=== PATIENT | female | born 1985 ===

== ENCOUNTER 2017-01-01 12:51 | Emergency (ER) | payer MEDICAID ==
[2017-01-01 13:45] VITALS: BMI 26.4
[2017-01-01 21:17] VITALS: BP 99/59; PULSE 83
--- NOTE | 2017-01-02 01:16 | OBHP ---
Datetime: 01/01/2017 13:33 IP Adm Impression: , intrauterine IP Chief Complaint Other: needs Rhogam - unable to obtain as outpatient IP Adm Impression Other: Rh neg IP Admit Plan: Observation/Evaluation Admit Comment, IP Provider: 31yo IUP at 28w sent for Rhogam injectoin. Blood type O neg Ab neg August 07 +FM; no CTX: no VB; no SROM care: CP Dr Carlene salas Chart rev'd; had thir tri done today; no blood type; given TDAP in office today PMSH: denies NKA POBH: x 2 (one ) PGYNH: denies STD PSoH: denies smoking ETOH drugs A: IUP at 28w Rh neg PLAN check blood and given Rhogam. patients questions answered. Follow up in 2w as scheduled FHR - Baseline A Provider: 135 Membranes, Provider: Intact Comments, ACOG Physical Exam: ROS: General: no weakness; no fatigue HEENT: no BREWER; no visual dist CV: no palpitations; no no CP GI: no N/V no diarhea : no F/U/D MS: No joint pain IP Hx Assessment: The History has been Reviewed and is Current EGA AdmitDate IP: 28.1 IP Chief Complaint: Other NICHD Variability Prov Fetus A: Moderate 6-25bpm NICHD Accel Fetus A IP Provider: 10X10 FHR Category Provider Fetus A: Category I
--- NOTE | 2017-01-02 01:19 | OBHP ---
Datetime: 01/01/2017 13:33 Admit Comment, IP Provider: 31yo IUP at 28w sent for Rhogam injectoin. Blood type O neg Ab neg August 07 +FM; no CTX: no VB; no SROM care: CP Dr Carlene salas Chart rev'd; had thir tri done today; no blood type; given TDAP in office today PMSH: denies NKA POBH: x 2 (one ) PGYNH: denies STD PSoH: denies smoking ETOH drugs A: IUP at 28w Rh neg PLAN check blood and given Rhogam. patients questions answered. Follow up in 2w as scheduled ADD allergy: vanco
--- NOTE | 2017-01-02 01:19 | OBDCSUM ---
Datetime: 01/01/2017 16:36 Discharged to, Provider: Home Follow up at, Provider: DR. Verdin Disch Instr Activity: Normal activity Disch Instr Diet: Regular Discharge Time: 01/01/2017 16:30 Follow up in weeks, Provider: 1 week Disch Referrals: None
== END 2017-01-01 16:30 | disposition home or self-care (01) ==
LOC: H.EROB2 12:51
DX: O36.0931 Maternal care for other rhesus isoimmunization, third trimester, fetus 1 (principal); Z3A.28 28 weeks gestation of pregnancy
CPT/HCPCS: 86850; 86900; 99281; J2792

== ENCOUNTER 2017-03-16 00:42 | Inpatient (IN) | payer MEDICAID ==
[2017-03-16 01:53] VITALS: BMI 23.2
[2017-03-16] MEDS ORDERED: Nalbuphine 20 mg/ml Inj (1 ml) IVP PRN (02:19)
[2017-03-16] MEDS ORDERED: Fentanyl/Bupivacaine HCl 250 ML EPI ONE (02:59)
[2017-03-16] MEDS ORDERED: Lactated Ringer's 1,000 ML IV SCH (03:00)
[2017-03-16] MEDS: Lactated Ringer's 1,000 ML IV SCH ×2 (03:00→03:35)
[2017-03-16] MEDS ORDERED: Oxytocin 30 UNITS in Sodium Chloride 0.9% 500 ML IV SCH (03:00)
[2017-03-16 03:16] LABS: BASO % 0.4 % (0.0-2.0); EOS # 0.1 K/uL (0.0-0.7); EOS % 0.7 % (0.0-4.0); HEMATOCRIT 37.8 % (34.0-47.0); LYMPH # 1.4 K/uL (1.0-4.3); LYMPH % 14.7 % (20.0-40.0); MEAN CELL VOLUME 76.8 fl (81.0-99.0); MEAN CORPUSCULAR HEMOGLOBIN 25.9 pg (27.0-31.0); MEAN CORPUSCULAR HGB CONC 33.7 g/dL (33.0-37.0); MEAN PLATELET VOLUME 10.5 fl (7.2-11.7); MONO # 0.9 K/uL (0.0-0.8); MONO % 9.7 % (0.0-10.0); NEUT # 6.9 K/uL (1.8-7.0); NEUT % 74.5 % (50.0-75.0); NRBC % 0.1 % (0.0-0.0); RED CELL DISTRIBUTION WIDTH 14.2 % (11.5-14.5); WHITE BLOOD COUNT 9.3 K/uL (4.8-10.8)
[2017-03-16] MEDS ORDERED: Lidocaine 1% Inj (20ml) ONE (04:36)
[2017-03-16 05:46] VITALS: O2SAT 100
--- NOTE | 2017-03-16 09:37 | OBDS ---
DELIVERY PERSONNEL Delivery Doctor: Simon Banks MD Table Worker Packager: One[place]/Mark-CastroRN MATERNAL INFORMATION Delivery Anesthesia: Epidural Medications in Delivery: Pitocin Placenta Cultured: No Maternal Complications: None Provider Comments: of live female infant over intact perineum, 6lbs 9oz, 9/9, [place] presentation followed by shoulders and rest of , mouth and nose suctioned, cord clamped and cut, placenta de livered spontaneously, cord blood obtained, QRN=[id number], no lacerations, patient tolerated procedure LABOR SUMMARY EDC: 03/25/2017 00:00 No. Babies in Womb: 1 Attempted: No Labor Anesthesia: Epidural LABOR INFORMATION Reason for Induction: Not Applicable Onset of Labor: 03/16/2017 03:00 Complete Dilatation: 03/16/2017 07:30 Oxytocin: N/A Group B Beta Strep: Negative Antibiotics # of Doses: n/a Antibiotics Time of Last Dose: n/a Steroids Given: None Reason Steroids Not Administered: Not Applicable Other Reason Not Administered: n/a MEMBRANES Membranes Rupture Method: Artificial Rupture of Membranes: 03/16/2017 07:30 Length of Rupture (hrs): 0.67 Amniotic Fluid Color: Clear Amniotic Fluid Amount: Moderate Amniotic Fluid Odor: Normal STAGES OF LABOR Stage 1 hrs: 4 Stage 1 min: 30 Stage 2 hrs: 0 Stage 2 min: 40 Stage 3 hrs: 0 Stage 3 min: 2 Total Time in Labor hrs: 5 Total Time in Labor min: 12 VAGINAL DELIVERY Episiotomy: None Laceration Extension: N/A Laceration Type: None Laceration Repair: Not Applicable Initial Vag Sponge Count: Laps=5+1 Final Vag Sponge Count: Laps=5+1 Initial Vag Sharps Count: 0 Final Vag Sharps Count: 0 Sponge Count Correct: Yes Sharps Count Correct: N/A Count Comment: laps=5+1 correct BABY A INFORMATION Delivery Date/Time: 03/16/2017 08:10 Method of Delivery: Vaginal Born in Route : No : N/A Forceps: N/A Vacuum Extraction: N/A Shoulder Dystocia : No SHOULDER DYSTOCIA BABY A Infant Delivery Date/Time: 03/16/2017 08:10 PRESENTATION/POSITION BABY A Presentation: Cephalic Cephalic Presentation: Vertex Breech Presentation: N/A PLACENTA INFORMATION BABY A Placenta Delivery Time : 03/16/2017 08:12 Placenta Method of Delivery: Spontaneous Placenta Status: Delivered SCORES BABY A Heart Rate 1 min: >100 bpm Resp Effort 1 min: Good Cry Reflex Irritability 1 min: Cough or Sneeze or Pulls Away Muscle Tone 1 min: Active Motion Color 1 min: Body [place], Extremities Blue Resuscitation Effort 1 min: Tactile Stimulation SCORE 1 MIN: 9 Heart Rate 5 min: >100 bpm Resp Effort 5 min: Good Cry Reflex Irritability 5 min: Cough or Sneeze or Pulls Away Muscle Tone 5 min: Active Motion Color 5 min: Body [place], Extremities Blue Resuscitation Effort 5 min: N/A SCORE 5 MIN: 9 INFORMATION BABY A Gestational Age at Delivery: 38.5 Gestational Status: Term Infant Outcome : Liveborn Infant Condition : Stable Sex: Male IDENTIFICATION/MEDS BABY A ID Band Number: [id number] ID Band Location: Left Leg; Left Arm Vitamin K Given : Not Given Erythromycin Given: Not Given WEIGHT/LENGTH BABY A Infant Birthweight (gms): 2965 Infant Weight (lb): 6 Infant Weight (oz): 9 CORD INFORMATION BABY A No. Cord Vessels: 3 Nuchal Cord : N/A Nuchal Cord Other: n/a True Knot: n/a Infant Cord pH Baby Arterial: n/a Cord pH Baby Venous: n/a Cord Blood Taken: Yes Banking/Donate Info: n/a Suction: Mouth; Nose ASSESSMENT BABY A Complications: None Physical Findings at Delivery: Within Normal Limits Infant Respirations: Appears Normal Rolled Ham Lacer/ALS Called : No Infant Care By: Oneida/Mary Transferred To: Remains with Mother
[2017-03-16] MEDS ORDERED: Oxycodone/Acetaminophen 5/325 mg Tab PO PRN ×2 (17:34)
[2017-03-16] MEDS: Benzocaine/Menthol SPRAY TOP PRN (18:24)
[2017-03-16] MEDS: Multivitamin With Minerals Tab PO SCH (18:27)
[2017-03-17 07:24] LABS: HEMATOCRIT 34.1 % (34.0-47.0); MEAN CELL VOLUME 78.8 fl (81.0-99.0); MEAN CORPUSCULAR HEMOGLOBIN 25.2 pg (27.0-31.0); MEAN CORPUSCULAR HGB CONC 31.9 g/dL (33.0-37.0); RED CELL DISTRIBUTION WIDTH 14.2 % (11.5-14.5); WHITE BLOOD COUNT 10.6 K/uL (4.8-10.8)
--- NOTE | 2017-03-17 07:52 | OBPPN ---
Datetime: 03/17/2017 07:46 PP Pain Prov: Within normal limits PP Nausea Prov: Denies PP Abdomen/Uterus Prov: Normal PP Lochia Prov: Normal PP Progress Prov: Normal PP Impression Prov: Normal progression PP Plan Prov: Continue present management PP Progress Note Prov: PPD 1 s/p , doing well, breast and bottle feeding Continue current management Vital Signs Provider PP: Reviewed
[2017-03-17] MEDS: Multivitamin With Minerals Tab PO SCH (09:10)
[2017-03-18] MEDS: Multivitamin With Minerals Tab PO SCH (09:14)
[2017-03-18] MEDS: Benzocaine/Menthol SPRAY TOP PRN (09:15)
--- NOTE | 2017-03-18 10:41 | OBPPN ---
Datetime: 03/18/2017 10:38 PP Pain Prov: Within normal limits PP Nausea Prov: Denies PP Flatus Prov: Yes PP Breasts Prov: Normal PP Heart Prov: Normal PP Lungs Prov: Normal PP Abdomen/Uterus Prov: Normal PP Lochia Prov: Normal PP Vulva/Perineum Prov: Normal PP CVA Tenderness Prov: Normal PP Extremities Prov: Normal PP Comments Phys Exam Prov: Fundus firm under umbilicus PP Impression Prov: Normal progression PP Plan Prov: Continue present management PP Progress Note Prov: Patient denies CP, no SOB, no N/V, tolerating PO diet, ambulating/voiding wel l, mild lochia, abdominal pain tolerable with meds A/P PPD #2 1. Discharge home 2. Discharge instructions reviewed IP PP Procedures: None Vital Signs Provider PP: Reviewed; Within Normal Limits
--- NOTE | 2017-03-18 10:41 | OBDCSUM ---
Datetime: 03/18/2017 10:39 Discharged to, Provider: Home Follow up at, Provider: OB Disch Instr Activity: Normal activity Disch Instr Diet: Regular Discharge Instructions, Provider: Routine instructions given Discharge Diagnosis, Provider: Term Delivered Discharge Time: 03/18/2017 10:39 Follow up in weeks, Provider: 6 wks Disch Referrals: None Contraception discussed, Prov: Yes
[2017-03-18 20:53] VITALS: BP 114/73; PULSE 77; RESP 20; TEMP 98.5
== END 2017-03-18 12:34 | disposition home or self-care (01) | DRG 373 ==
LOC: H.EROB2 00:42 → H.EROB 00:56 → H.L&D 02:53 → H.EROB2 03:11 → H.OB/GYN 17:30
PROVIDERS: ADMIT Obstetrics & Gynecology; ATTEND Obstetrics & Gynecology
PROC: 10E0XZZ Delivery of Products of Conception, External Approach (ICD-10-PCS; principal; 2017-03-16)
PROC: 4A1HXCZ Monitoring of Products of Conception, Cardiac Rate, External Approach (ICD-10-PCS; 2017-03-16)
DX: O80 Encounter for full-term uncomplicated delivery (principal); Z37.0 Single live birth; Z3A.38 38 weeks gestation of pregnancy